=== PATIENT | male | born 1960 | race Caucasian/White ===

== ENCOUNTER 2018-03-01 20:30 | Outpatient (CLI) | payer BC | END 2018-03-01 20:31 | disposition home or self-care (01) | LOC: SLEEPLAB 20:30 | PROVIDERS: ATTEND Family Medicine | DX: G47.33 Obstructive sleep apnea (adult) (pediatric) (principal); F41.9 Anxiety disorder, unspecified; E66.9 Obesity, unspecified; Z68.31 Body mass index [BMI] 31.0-31.9, adult; R06.83 Snoring; I10 Essential (primary) hypertension | CPT/HCPCS: 95811 ==

== ENCOUNTER 2018-09-05 12:51 | Outpatient (CLI) | payer BC ==
[~2018-09-05 12:51] MED LIST: Iopamidol 370 76% 100 ML VIAL ONE
--- NOTE | 2018-09-05 15:31 | CT ---
CT ABDOMEN AND PELVIS WITH CONTRAST: Comparison: None. History: Left upper abdominal pain for three days which is getting worse. Technique: Multiple contiguous axial images were obtained in a CT of the abdomen and pelvis with cont rast. PO contrast was administered. Coronal reformats were performed. FINDINGS: The liver, gallbladder, kidneys, adrenal glands, spleen and pancreas are unremarkable. A few scattered diverticula are seen in the colon. There is a small amount of stranding adjacent to t he left colon surrounding an area demonstrating fat density. This likely represents epiploic appendag itis. The small bowel is unremarkable. No free air or free fluid is seen in the abdomen or pelvis. No abnormal or pelvic lymphadenopathy are seen. Degenerative changes are seen in the spine. There are calcified granulomas in the left lung base. The abdominal wall soft tissues are unremarkable. IMPRESSION: 1. Epiploic appendagitis. 2. Diverticulosis without evidence of acute diverticulitis. POS: FABIÁN
== END 2018-09-05 12:52 | disposition home or self-care (01) ==
LOC: BICCT 12:51
PROVIDERS: ATTEND Family Medicine
DX: R10.32 Left lower quadrant pain (principal); K63.89 Other specified diseases of intestine; K57.30 Diverticulosis of large intestine without perforation or abscess without bleeding
CPT/HCPCS: 36415; 74177; 80053; 85025; 85652; 86140

== ENCOUNTER 2021-04-23 10:27 | Outpatient (CLI) | payer BC | END 2021-04-23 10:28 | disposition home or self-care (01) | LOC: BICMRI 10:27 | PROVIDERS: ATTEND Family Medicine | DX: M51.16 Intervertebral disc disorders with radiculopathy, lumbar region (principal); M51.37 Other intervertebral disc degeneration, lumbosacral region | CPT/HCPCS: 70210; 72148 ==

== ENCOUNTER 2021-04-29 09:36 | Outpatient (CLI) | payer BC | END 2021-04-29 09:37 | disposition home or self-care (01) | LOC: BICRAD 09:36 | PROVIDERS: ATTEND Nurse Practitioner Family | DX: M47.816 Spondylosis without myelopathy or radiculopathy, lumbar region (principal); M43.16 Spondylolisthesis, lumbar region | CPT/HCPCS: 72110 ==

== ENCOUNTER 2023-11-11 12:58 | Outpatient (CLI) | payer MEDICARE, OTHER | END 2023-11-11 12:59 | disposition home or self-care (01) | LOC: CT 12:58 | PROVIDERS: ATTEND Family Medicine | DX: S09.90XA Unspecified injury of head, initial encounter (principal) | CPT/HCPCS: 70450 ==

== ENCOUNTER 2024-11-30 11:56 | Outpatient (CLI) | payer MEDICARE, OTHER | END 2024-11-30 11:57 | disposition home or self-care (01) | LOC: MRI 11:56 | PROVIDERS: ATTEND Neurological Surgery | DX: M54.50 Low back pain, unspecified (principal); M48.061 Spinal stenosis, lumbar region without neurogenic claudication | CPT/HCPCS: 72148 ==